=== PATIENT | female | born 1940 | race Caucasian/White ===

== ENCOUNTER 2024-01-14 17:23 | Emergency (ER) | payer SELFPAY ==
[2024-01-14 20:06] VITALS: BP 111/98; PULSE 108; RESP 18; TEMP 98.1; O2SAT 98
== END 2024-01-14 20:06 | disposition home or self-care (01) ==
LOC: ER 17:23
DX: S01.111A Laceration without foreign body of right eyelid and periocular area, initial encounter (principal); W01.0XXA Fall on same level from slipping, tripping and stumbling without subsequent striking against object, initial encounter; Y93.89 Activity, other specified; Y92.89 Other specified places as the place of occurrence of the external cause; Y99.8 Other external cause status
CPT/HCPCS: 12011